=== PATIENT | male | born 1985 | race African-American/Black ===

== ENCOUNTER 2019-02-03 23:55 | Inpatient (IN) | payer BC ==
[~2019-02-03] VITALS: Ht 172.7 cm; Wt 88.2 kg
--- NOTE | ~2019-02-03 | OP ---
PATIENT NAME: LISETH NAJERA MEDICAL RECORD: [id number] :[birth year] LOCATION:D.M2 D.2102 ADMISSION DATE:02/03/19 SURGEON: DEBBIE LOBATO MD DATE OF OPERATION: 02/06/2019 PROCEDURES: 1. Left heart catheterization. 2. Selective coronary angiography. 3. Left ventriculogram PROCEDURE IN DETAIL: After informed consent was obtained and after a detailed description of risks, benefits as well as alternative therapies, the patient elected to proceed with angiogram and heart catheterization. The right femoral area was prepped and draped in normal sterile fashion. Right femoral artery was cannulated via modified Seldinger technique with placement of 5-Swedish sheath. All catheters exchanged through this sheath. FINDINGS: The left ventriculogram was performed in standard 30-degree JETT view. Left ventricle is grossly dilated. Left ventricular systolic function is markedly reduced, overall ejection fraction in the 15% range. SELECTIVE CORONARY ANGIOGRAPHY: Left main, left anterior descending, left circumflex, and right coronary artery are all smooth-walled vessels with no angiographic evidence of coronary artery disease. OVERALL IMPRESSION: 1. No angiographic evidence of coronary artery disease. 2. Normal left heart pressure. 3. Severe LV dysfunction with ejection fraction 15%, nonischemic cardiomyopathy. TRANSINT:[id number] Voice Confirmation ID: [id number] DOCUMENT ID: [id number] DEBBIE LOBATO MD CC: [id number] DICTATION DATE: 02/09/19 1018 CLUSTER BORE OPERATOR: 02/09/19 1050 DIS IN 02/07/19 [facility] [address] [id number]
--- NOTE | ~2019-02-03 | HEMODYNAMI ---
PATIENT:LISETH NAJERA MEDICAL RECORD: [id number] : 81 LOCATION:[facility] D.2102 ADMISSION DATE: 02/03/19 Generatedon:02/06/201914:47 Patient name: LISETH NAJERA Patient #: [id number] SSN: : 1985 Date of study: 02/06/2019 Page: Of Hemodynamic Procedure Report Patient Data Patient Demographics Procedure consent was obtained First Name: LISETH Gender: Male Last Name: DANIA : 1985 Patient #: [id number] Age: 34 year(s) Race: Black Additional ID: [id number] Contact details [address]: [address] [place] [address] State: [place] City: [place] Zip code: [address] Past Medical History Allergies: No known allergies Admission Admission Data Admission Date: 02/03/2019 Admission Time: 23:55 Room #: D.2102 Height (in.): 67.72 BSA: 1.99 (m2) Height (cm.): 172 BMI: 29.07 (kg/m2) Weight (lbs.): 189.6 Weight (kg.): 86 Lab Results Lab Result Date: 02/06/2019 Lab Result Time: 0:00 Biochemistry Name Units Result Min Max BUN mg/dl 30 --(----)-* 7 18 Creatinine mg/dl 1.5 --(----)-* 0.6 1.3 CBC Name Units Result Min Max Hemoglobin g/dl 13.5 --(*---)-- 13.5 17.5 Procedure Procedure Types Cath Procedure Diagnostic Procedure [facility] Procedure Description Procedure Date Procedure Date: 02/06/2019 Procedure Start Time: 14:35 Procedure End Time: 14:46 Procedure Staff Name Function Garfield Wei MD Performing Physician Abram Whitaker RN Nurse Shala Wiseman RT Scrub Pardeep Marin RT Monitor Procedure Data Cath Procedure Fluoroscopy Diagnostic fluoroscopy Total fluoroscopy Time: 0.8 time: 0.8 min min Diagnostic fluoroscopy Total fluoroscopy dose: 426 dose: 426 mGy mGy Contrast Material Contrast Material Type Amount (ml) Isovue 300 41 Entry Location Entry Primary Successful Side Size Upsize Upsize Entry Closure Succes sful Closure Location (Fr) 1 (Fr) 2 (Fr) Remarks Device Remarks Femoral Right 5 Fr Exoseal artery Estimated blood loss: 10 ml Diagnostic catheters Device Type Used For End Catheter Placement MULTIPACK Pigtail 5 Fr Procedure catheter MULTIPACK JL 4.0 5Fr Procedure catheter MULTIPACK 3DRC 5Fr Procedure catheter Procedure Medications Medication Administration Route Dosage 0.9% NaCl I.V. 100 ml/hr Oxygen etCO2 Nasal cannula 2 l/min Heparin Flush Bag added to field 2 bags (1000units/500ml NS) Lidocaine 2% added to field 20 Versed I.V. 2 mg Fentanyl I.V. 100 mcg Hemodynamics Rest BSA: 1.99 (m2) HGB: 13.5 (g/dl) O2 Consumption: Estimated: 260.45 (ml/min) O2 Co nsumption indexed: Estimated:130.88 (ml/min/m) Heart Rate: 90 (bpm) Pressure Samples Time Site Value (mmHg) Purpose Heart Use Rate(bpm) 14:36 LV 85/16,21 Snapshot 101 Snapshots Pre Cath Intra NCS Post Cath Vital Signs Time Heart Resp SPO2 etCO2 NIBP (mmHg) Rhythm Pain Sedation Rate (ipm) (%) (mmHg) Status Level (bpm) 14:16:24 90 27 100 22.5 138/93(104) NSR 0 (11) 10(A) , No pain 14:20:40 89 44 100 24.7 125/81(94) NSR 0 (11) 10(A) , No pain 14:24:50 94 33 100 24.7 114/81(95) NSR 0 (11) 10(A) , No pain 14:28:57 92 27 100 33 112/75(92) NSR 0 (11) 10(A) , No pain 14:33:03 98 27 100 27.7 114/79(91) NSR 0 (11) 10(A) , No pain 14:37:13 96 26 100 32.3 111/75(89) NSR 0 (11) 9(A) , No pain 14:41:19 96 22 100 32.2 122/80(93) NSR 0 (11) 9(A) , No pain 14:45:27 97 37 100 20.2 106/77(88) NSR 0 (11) 9(A) , No pain Medications Time Medication Route Dose Verified Delivered Reason Notes Eff ectiveness by by 14:16:50 0.9% NaCl I.V. 100 Abram Abram Per ml/hr Julianne Whitaker physician RN RN 14:16:59 Oxygen etCO2 2 Abram Abram for low 02 Nasal l/min Lorigan Lorigan sats cannula RN RN 14:17:08 Heparin Flush added 2 Abram Abram used for Bag to bags Lorigan Loryinka procedure (1000units/500ml field RN RN NS) 14:17:18 Lidocaine 2% added 20ml Abram Abram for local to vial Lorigan Lorigan anesthetic field RN RN 14:31:31 Versed I.V. 2 mg Abram Abram for Lorigan Lorigan sedation RN RN 14:31:39 Fentanyl I.V. 100 Abram Abram for mcg Lorigan Lorigan sedation RN personal financial counselor Log Time Note 13:58:48 Patient Height : 67.72 inches 13:58:52 Patient Weight : 189.6 lbs 13:59:31 Lab Result : Hemoglobin 13.5 g/dl 13:59:31 Lab Result : Creatinine 1.5 mg/dl 13:59:31 Lab Result : BUN 30 mg/dl 13:59:37 Diagnostic Cath status Elective 13:59:41 Time tracking: Regular hours (M-F 7:00 - 5:00) 13:59:47 Plan of Care:Hemodynamics will remain stable., Cardiac rhythm will remain stable., Comfort level will be maintained., Respiratory function will remain adequate., Patient/ family verbilizes understanding of procedure., Procedure tolerated without complication., Recovers from procedure without complications.. 13:59:55 Patient received from Pre/Post Procedure Room to CCL 2 Alert and oriented. Tansferred to table in Supine position. 14:00:46 Abram Whitaker RN sent for patient. Start room use. 14:15:11 Warm blankets applied, and ryanne hugger turned on for patient comfort. 14:15:12 Correct patient and procedure confirmed by team. 14:15:13 Signed procedure consent form obtained from patient. 14:15:22 ECG and BP/O2 sat monitors applied to patient. 14:15:23 Vital chart was started 14:15:30 Baseline sample Acquired. 14:15:31 Full Disclosure recording started 14:15:42 H&P Date Dictated: 02/04/2019 Within 30 days and on chart., H&P Addendum completed by physician on day of procedure. (MUST COMPLETE FOR ALL OUTPATIENTS). 14:15:44 Pre-procedure instructions explained to patient. 14:15:50 Family unavailable. 14:15:52 Patient NPO since Midnight. 14:15:58 Patient allergic to No known allergies 14:16:01 Is the patient allergic to Iodine/contrast media? No. 14:16:02 Was the patient premedicated? Yes 14:16:04 Is patient on blood thinner?No 14:16:05 Patient diabetic? No. 14:16:11 Snore? Yes 14:16:13 Sleep apnea? No 14:16:15 Airway obstruction? No ? 14:16:19 Dentures? No ? 14:16:26 Patient pain scale 0/10 ?. 14:16:32 IV patent on arrival in left forearm with 0.9% NaCl at [facility]. 14:16:39 Lab results completed and on chart. 14:16:43 Right groin area was prepped with chlora-prep and draped in sterile fashion 14:16:44 Alarms reviewed by R. N. 14:16:45 Sharps counted by scrub and verified by R.N. 14:16:50 0.9% NaCl 100 ml/hr I.V. was administered by Abram Whitaker RN; Per physician; 14:16:51 Use device set Femoral Dx 14:16:53 ACIST Syringe (01011) opened to sterile field. 14:16:53 Bag Decanter (2002S) opened to sterile field. 14:16:54 Medline Cath Pack ([id number]) opened to sterile field. 14:16:55 DIAGNOSTIC WIRE .035 260cm J wire (966729) opened to sterile field. 14:16:56 ACIST Hand Control (58701) opened to sterile field. 14:16:56 ACIST Manifold (28123) opened to sterile field. 14:16:57 DIAGNOSTIC Multipack 5Fr catheter set (EC5176) opened to sterile field. 14:16:59 Oxygen 2 l/min etCO2 Nasal cannula was administered by Abram Whitaker RN; for low 02 sats; 14:17: SHEATH 5FR [place] (RTI408) opened to sterile field. 14::08 Heparin Flush Bag (1000units/500ml NS) 2 bags added to field was administered by Abram Whitaker RN; used for procedure; 14::18 Lidocaine 2% 20ml vial added to field was administered by Abram Whitaker RN; for local anesthetic; 14:: Baseline sample Acquired. 14::33 Rhythm: sinus rhythm 14:: Previous problem with sedation/anesthesia? No ? 14::00 Deviated septum? No 14::07 Opens mouth fully? Yes 14::09 Sticks out tongue? Yes 14::59 Physician arrived 14::00 --------ALL STOP TIME OUT------ 14::00 Final Timeout: patient, procedure, and site verified with staff and physician. All members of the team are in agreement. 14:30: Right groin site verified by team. 14:30: Maximum allowable Isovue 300 dose 300ml. Physician notified. (300ml for normal creatinines. For patients with creatinine of 1.7 or higher multiply weight(kg) x 5 divided by creatinine.) 14:30:19 Fire Safety Assessment: A--An alcohol-based skin anteseptic being used preoperatively., C--Open oxygen or nitrous oxide is being used., D--An ESU, laser, or fiber-optic light is being used. 14:: Physical assessment completed. ASA score P 2 - A patient with mild systemic disease as per Garfield Wei MD. :: Sedation plan: IV Moderate Sedation Medication:Versed, Fentanyl : Versed 2 mg I.V. was administered by Abram Whitaker RN; for sedation; ::39 Fentanyl 100 mcg I.V. was administered by Abram Whitaker RN; for sedation; :35:07 Procedure started. 14:35:12 Local anesthetic to right femoral artery with Lidocaine 2% by Garfield Wei MD.INITIAL ACCESS ONLY 14:35:37 A 5 Fr sheath was inserted into the Right Femoral artery 14:36:07 A MULTIPACK Pigtail 5 Fr catheter was advanced over the wire and used for Procedure. 14:36:37 LV hemodynamics recorded. 14:36:39 LV gram done using JETT 14:37:00 EF : 15 % 14:37:23 Catheter removed. 14:37:28 A MULTIPACK JL 4.0 5Fr catheter was advanced over the wire and used for Procedure. 14:38:04 LCA angiography performed. 14:38:06 Catheter removed. 14:38:36 A MULTIPACK 3DRC 5Fr catheter was advanced over the wire and used for Procedure. 14:39:03 RCA angiography performed. 14:39:13 Catheter removed. 14:39:21 EXOSEAL 5Fr (EX500) opened to sterile field. 14:39:38 Sheath removed intact; hemostasis achieved with Exoseal to the Right Femoral artery. 14:39:40 Procedure ended.(Physican Out) 14:40:22 Fluoroscopy time 00.80 minutes. 14:40:29 Fluoroscopy dose: 426 mGy 14:40:29 Flurop Dose total: 426 14:40:37 Contrast amount:Isovue 300 41ml. 14:40:41 Sharps counted by scrub and verified by R.N. 14:45:07 Insertion/operative site no bleeding no hematoma. 14:45:12 Post-op/insertion site Right Femoral artery dressed using a 4 x 4 and Tegaderm. 14:45:16 Post right femoral artery:stable 14:45:24 Post-procedure physical assessment completed. ASA score P 2 - A patient with mild systemic disease as per Garfield Wei MD. 14:45:29 Post procedure rhythm: paced 14:45:33 Estimated blood loss: 10 ml 14:45:38 Patient needs reinforcement of post procedure teaching. 14:45:39 Procedure and supply charges have been captured, reviewed, submitted and are correct. 14:46:09 Vital chart was stopped 14:46:10 See physician's report for complete and final results. 14:46:23 Report given to [facility]. 14:46:28 Patient transfered to [facility] with Bed. 14:46:30 Procedure ended. 14:46:30 Full Disclosure recording stopped 14:46:36 End room use (Document Last) Device Usage Item Name Manufacture Quantity Catalog Hospital Part Current Minimal L ot# / Number Charge Number Stock Stock Serial# Code ACIST Acist 1 15566 282454 049055 330566 20 Syringe Medical (72240) Systems Inc Bag Microtek 1 2001S 380862 58853 503003 5 Decanter Medical Inc. () Medline Medline 1 [id number] 304323 25943 149316 5 Cath Pack ([id number]) DIAGNOSTIC St Reid 1 807326 795719 094000 721642 30 WIRE .035 260cm J wire (274447) ACIST Hand Acist 1 80033 695927 102074 187671 5 Control Medical (79930) Systems Inc ACIST Acist 1 79317 042553 197912 267959 5 Manifold Medical (99749) Systems Inc DIAGNOSTIC Cardinal 1 YW1067 121253 44695 544378 30 Multipack Health 5Fr catheter set (QE4821) SHEATH 5FR Terumo 1 KGF982 650277 653184 275720 5 [place] (BLC994) MULTIPACK Cardinal 1 093318 5 Pigtail 5 Health Fr catheter MULTIPACK Cardinal 1 459899 5 JL 4.0 5Fr Health catheter MULTIPACK Cardinal 1 034095 5 3DRC 5Fr Health catheter EXOSEAL 5Fr Cardinal 1 EX500 450934 985779 018286 10 (EX500) Health Signature Audit [place] Stage Time Signature Unsigned Intra-Procedure 02/06/2019 Pardeep Marin 2:47:28 PM RT(R) (CV) Signatures Monitor : Pardeep Marin RT Signature : Date : Time : [address] [address]
--- NOTE | 2019-02-04 02:10 | NUR ---
DIRECT ADMIT DENIES CP OR SOB TO BED AND LUNGS ARE CLEAR RESP AT 22...VS 97.4 135/89 109 22 98% ON 2L/NC SKIN WARM AND DRY NO WOUNDS OR BREAK DOWN.
--- NOTE | 2019-02-04 02:38 | NUR ---
DR HAYS NOTIFIED WITH NO NEW ORDERS GIVEN
--- NOTE | 2019-02-04 02:48 | NUR ---
APPLIED TELEMETRY AT THIS TIME
--- NOTE | 2019-02-04 02:58 | NUR ---
PT ADMIT ASSESSMENT COMPLETE. PT IS AAO. ON 1L O2 NC. LEFT AC PIV 20G S/L LEFT CHEST DEFIB, S1S2 RRR. LUNGS HAVE FINE CRACKLES/RALES. NO EDEMA NOTED. PULSES +2 PT HAS CALL LIGHT IN REACH. NO S/S OF DISTRESS. NUTRITIONAL HEALTH COACH JAMES DOING MED REC AND HISTORY. PT WILL CALL FOR ASSIST WHEN NEEDED. WILL CPOC
[2019-02-04] MEDS ORDERED: COREG6.25 MG PO (03:07)
[2019-02-04] MEDS ORDERED: METOLAZONE2.5 MG PO (03:08)
[2019-02-04] MEDS ORDERED: PROTONIX40 MG PO (03:08)
[2019-02-04 03:57] VITALS: BP 135/89; BMI 29.8
[2019-02-04 05:08] VITALS: BP 135/89
--- NOTE | 2019-02-04 07:10 | NUR ---
REPORT RECEIVED FROM EXECUTIVE CHAIRMAN. PATIENT LAYING IN BED ION RT SIDE WITH EYES CLOSED AND BREATHING EVENLY. VSS. WILL CONTINUE WITH PLAN OF CARE. SR UP X 2 BED IN LOW POSITION AND CALL LIGHT IN REACH.
[2019-02-04 09:30] LABS: BASOPHILS 0.2 % (0-2); EOSINOPHILS 2.8 % (0-7); HEMATOCRIT 40.7 % (42.0-54.0); HEMOGLOBIN 13.5 g/dL (13.5-17.5); IMMATURE GRANULOCYTES 0.2 % (0-5); LYMPHOCYTES 27.5 % (15-50); MCH 31.5 pg (26.0-34.0); MCHC 33.2 g/dL (31.0-37.0); MCV 94.9 fL (80.0-100.0); MEAN PLATELET VOLUME 9.2 fL (7.4-10.4); MONOCYTES 5.4 % (2-11); NEUTROPHILS 63.9 % (40-80); PLATELET COUNT 228 10x3/uL (130-400); RBC 4.29 10x6/uL (4.20-6.10); WBC 5.4 10x3/uL (4.8-10.8)
[2019-02-04 09:45] VITALS: BP 125/95
[2019-02-04 09:53] LABS: ANION GAP 13.5 mmol/L (8-16); CALCIUM 8.9 mg/dL (8.5-10.1); CARBON DIOXIDE 29.5 mmol/L (21.0-32.0); CREATININE - SERUM 1.5 mg/dL (0.6-1.3)
[2019-02-04 12:16] VITALS: BMI 29.8
[2019-02-04 14:40] VITALS: Ht 172.7 cm; Wt 88.2 kg
--- NOTE | 2019-02-04 14:49 | NUR ---
PATIENT REFUSING TO WEAR SCD'S.
--- NOTE | 2019-02-04 15:30 | NUR ---
PATIENT VOIDED 125 ML OF CONCENTRATED URINE. POST VOID BLADDER SCAN SHOWED 43 ML. PER MAR ORDER INFUSING DOBUTAMINE 5 MCG/KG/MIN AND BUMEX. PATIENT DENIES THAO NEEDS OR PAIN. VSS. WILL CONTINUE TO MONITOR.
[2019-02-04 16:58] LABS: CKMB 1.4 U/L (0.0-3.6); CREATINE KINASE 251 UL (21-232); PRO BNP 3105 pg/mL (0-125); TROPONIN-I 0.083 ng/mL (0.000-0.060)
[2019-02-04 18:23] LABS: UDS - AMPHET NEGATIVE QUAL (NEGATIVE); UDS - BARB NEGATIVE QUAL (NEGATIVE); UDS - BENZO NEGATIVE QUAL (NEGATIVE); UDS - COCAINE NEGATIVE QUAL (NEGATIVE); UDS - OPIATE NEGATIVE QUAL (NEGATIVE); UDS - PCP NEGATIVE QUAL (NEGATIVE); UDS - THC NEGATIVE QUAL (NEGATIVE)
[2019-02-04 18:31] VITALS: BP 129/44
[2019-02-04 18:33] LABS: APPEARANCE CLEAR (CLEAR); BILIRUBIN NEGATIVE (NEGATIVE); COLOR YELLOW (YELLOW); GLUCOSE NEGATIVE (NEGATIVE); KETONE NEGATIVE (NEGATIVE); NITRITE NEGATIVE (NEGATIVE); PROTEIN 1+ mg/dL (NEGATIVE); SPECIFIC GRAVITY 1.025 (1.005-1.020)
--- NOTE | 2019-02-04 20:00 | NUR ---
RESUMING PT CARE. PT ALERT LAYING IN BED WATCHING TV. NO C/O VOICED. RESPIRATIONS EVEN AND UNLABORED. NO S/S OF DISTRESS NOTED. PT HAS A IV IN THE LEFT AC. PT IS ON 2 LITERS OF OXYGEN. BED IN LOW POSITION WITH CALL LIGHT IN REACH. WILL CONTINUE TO MONITOR PT AND FOLLOW PLAN OF CARE.
[2019-02-04 22:19] LABS: CKMB 1.7 U/L (0.0-3.6); CREATINE KINASE 413 UL (21-232); TROPONIN-I 0.094 ng/mL (0.000-0.060)
[2019-02-04 22:36] VITALS: BP 123/80
[2019-02-05 03:33] LABS: CREATINE KINASE 308 UL (21-232); POTASSIUM - SERUM 3.1 mmol/L (3.5-5.1)
[2019-02-05 03:34] LABS: TROPONIN-I 0.089 ng/mL (0.000-0.060)
--- NOTE | 2019-02-05 04:23 | NUR ---
I have reviewed this patient and I concur with the Shift Assessment completed by the Licensed Practical Nurse today this shift.
--- NOTE | 2019-02-05 04:38 | NUR ---
2335 PT C/O OF SEVERE CRAMPING. PT LABS SHOWED POTASSIUM WAS 3.0 SO PT WAS GIVEN POTASSIUM CHLORIDE 40 MEQ PO PER PROTOCOL. LABS WAS DRAWN 4 HOURS AFTER AND LAB RESULTS WAS 3.1 SO POTASSIUM CHLORIDE 40 MEQ PO WAS GIVEN PER PROTOCOL. WILL CONTINUE TO MONITOR PT AND FOLLOW PLAN OF CARE.
[2019-02-05 06:06] VITALS: BP 112/77
--- NOTE | 2019-02-05 07:10 | NUR ---
REPORT RECIEVED FROM DRAINMAN. PATIENT LAYING IN BED ON LEFT SIDE WITH EYES CLOSED AND BREATHING EVENLY.VSS. WILL CONTINUE WITH PLAN OF CARE. SR UP X 2 BED IN LOW POSITION AND CALL LIGHT IN REACH.
[2019-02-05 09:06] VITALS: BP 99/69
--- NOTE | 2019-02-05 11:59 | NUR ---
Nutrition follow-up: Diet: Regular PO intake 100% of meals Labs reviewed Wt: 190# No BM charted RDN following.
[2019-02-05 13:02] VITALS: BP 111/74
--- NOTE | 2019-02-05 14:29 | NUR ---
PATIENT LAYING IN BED ON BACK WATCHINHG TV. VSS. PATIENT DENIES ANY PAIN OR NEEDS. WILL CONTINUE TO MONITOR. SR UP X 2 BED IN LOW POSITION AND CALL LIGHT IN REACH.
--- NOTE | 2019-02-05 17:05 | NUR ---
PTS L.AC PIV KEEP BECOMING OCCLUDED DUE TO LOCATION AND PT BENDING HIS ARM. D/C WITH CATHETER TIP FULLY INTACT AND RESITED PT TO HIS L.FA X1 STICK WITH A 20 GUAGE. DOBUTAMINE DRIP STILL INFUSING. DISCUSSED WITH PRIMARY NURSE INDY. NO FURTHER NEEDS.
[2019-02-05 18:32] VITALS: BP 112/81
--- NOTE | 2019-02-05 19:45 | NUR ---
RESUMING PT CARE. PT IS ALERT LAYING IN BED. NO C/O VOICED. RESPIRATIONS EVEN AND UNLABORED. NO S/S OF DISTRESS. BED IN LOW POSITION WITH CALL IN REACH. WILL CONITINUE TO MONITOR PT AND FOLLOW PLAN OF CARE.
[2019-02-05 20:00] VITALS: BP 117/83
[2019-02-06] VITALS: BP 124/85
--- NOTE | 2019-02-06 03:11 | NUR ---
I have reviewed this patient and I concur with the Shift Assessment completed by the Licensed Practical Nurse today this shift.
--- NOTE | 2019-02-06 03:25 | NUR ---
I have reviewed this patient and I concur with the Shift Assessment completed by the Licensed Practical Nurse today this shift.
[2019-02-06 04:00] VITALS: BP 103/70
[2019-02-06 05:04] LABS: ANION GAP 13.4 mmol/L (8-16); CALCIUM 8.6 mg/dL (8.5-10.1); CARBON DIOXIDE 28.7 mmol/L (21.0-32.0); CREATININE - SERUM 1.4 mg/dL (0.6-1.3); POTASSIUM - SERUM 3.1 mmol/L (3.5-5.1)
--- NOTE | 2019-02-06 07:10 | NUR ---
REPORT RECEIVED FROM MATCHER LEATHER PARTS AND PATIENT CARE RESUMED. PATIENT LAYING IN BED ON RT SIDE WITH EYES CLOSED AND BREATHING EVENLY. VSS. WILL CONTINUE WITH PLAN OF CARE. SR UP X 2 BED IN LOW POSITION AND CALL LIGHT IN REACH.
--- NOTE | 2019-02-06 08:30 | NUR ---
ORDER RECIEVED TO DC DOBUTAMINE DRIP. DRIP DC'D.
[2019-02-06 10:15] VITALS: BP 126/88
--- NOTE | 2019-02-06 13:50 | NUR ---
PATIENT IS STABLE AND VSS. PATIENT PREOP MEDS GIVEN PER JAN ORDER AND CALL FROM NURSING MANAGER TEAM. WILL CONTINUE TO MONITOR. SR UP X 2 BED IN LOW POSITION AND CALL LIGHT IN REACH.
--- NOTE | 2019-02-06 14:00 | NUR ---
PATIENT IS STABLE AND VSS. PATIENT TO AUTOMATIC CLIPPER AND STRIPPER VIA BED AND AUTOMATIC CLIPPER AND STRIPPER TEAM.
--- NOTE | 2019-02-06 14:47 | NUR ---
PATIENT RETURNED FROM BUILDING ARCHITECT VIA BED AND BUILDING ARCHITECT TEAM. PATIENT IS STABLE AND VSS. RT GROIN DRESSING C/D/I. PATIENT IS RESTING COMFORTABLY KWITH EYES CLOSED AND BREATHING EVENLY. WILL CONTINUE TO MONITOR. SR UP X 2 BED IN LOW POSTION AND CALL LIGHT IN REACH.
--- NOTE | 2019-02-06 15:00 | NUR ---
PATIENT RESTING COMFORTABLY WITH EYES CLOSED AND BREATHING EVENLY. VSS. RT GROIN DRESSING C/D/I. NO SIGNS OR BLEEDING, HEMATOMA, OR BRUISING. WILL CONTINUE TO MONITOR.
--- NOTE | 2019-02-06 15:03 | EC ---
PATIENT:LISETH NAJERA DATE OF SERVICE: 02/03/19 SEX: M MEDICAL RECORD: [id number] DATE OF : [birth year] LOCATION:D.M2 D.210 AGE OF PATIENT: 34 ADMISSION DATE: 02/03/19 REFERRING PHYSICIAN: INTERPRETING PHYSICIAN: DEBBIE WEI MD ECHOCARDIOGRAM REPORT ECHO CHARGES 4 ECHO COMPLETE Date: 02/04/19 CLINICAL DIAGNOSIS: CHF/CARDIOMYOPATHY HX OF ICD/CHF ECHOCARDIOGRAPHIC MEASUREMENTS (adult normal given) AC root (d.<3.7cm) 3.6 cm LV Septum d (<1.2 cm> 1.4 cm Valve Excursion 2.3 cm LV Septum (systole) 1.4 cm Left Atria (s.<4.0cm> 6.1 cm LVPW d(<1.2cm) 1.9 cm RV (d.<2.3cm) 6.4 cm LVPW (sytole) 1.9 cm LV diastole(<5.6CM) 7.2 cm MV E-F(>70mm/sec) cm LV systole 6.0 cm LVOT Diameter 2.2 cm MV exc.(>10mm) 1.8 cm Est.ejection fraction (50-75%) % DOPPLER: LVIT cm/sec A 48.0 cm/sec E 122 cm/sec LA cm/sec RVSP 40 mmHg LVOT 65 cm/sec AOP1/2T m/s Asc. Ao 77 cm/sec RVOT 50 cm/sec RA cm/sec PA 72 cm/sec AV Gradient Peak 2.36 mmHg AV Mean 1.24 mmHg AV Area 2.8 cm MV Gradient Peak 13.70mmHg MV Mean 4.32 mmHg MV Area cm COMMENTS: Line Runner: Taye GARCIA Mechanical Integrity Specialist: 1 Dr. Wei TAPE# PACS Pericardial Effusion N DATE OF SERVICE: 02/04/2019 FINDINGS: 1. Left ventricular chamber size is dilated. Left ventricular systolic function is markedly reduced. Overall ejection fraction is 25% to 30%. 2. Left atrium, right atrium, and right ventricle chamber sizes are dilated, giving a 4-chamber dilatation. 3. Valvular structures have normal structure and motion. 4. Doppler interrogation reveals mild aortic insufficiency, severe mitral regurgitation, and [id number]-uvptbt tricuspid regurgitation. No other ECHOCARDIOGRAM REPORT [id number] NAJERA,LISETH valvular insufficiency or stenosis. Pulmonary systolic pressure is estimated at 40 mmHg. 5. No evidence of pericardial effusion or left ventricular thrombus. TRANSINT:[id number] Voice Confirmation ID: [id number] DOCUMENT ID: [id number] DEBBIE WEI MD at 1503 CC: [id number] DICTATION DATE: 02/04/19 1553 CARTON CATCHER: 02/04/19 2305 ADM IN [id number] [place] [address]
--- NOTE | 2019-02-06 17:03 | NUR ---
PATIENT AWAKE AND CONTINUES TO LAY FLAT WITH LEGS STRAIGHT. RT GROIN DRESSING C/D/I. NO SIGNS OF BLEEDING, BRUISING OR HEMATOMA. PATIENT GIVEN WATER AND JUICE TO DRINK. PATIENT DENIES ANY NEEDS OR PAIN. WILL CONTINUE TO MONITOR. SR UP X 2 BED IN LOW POSITION AND CALL LIGHT IN REACH.
[2019-02-06 17:36] VITALS: BP 116/84
--- NOTE | 2019-02-06 19:00 | NUR ---
AT REST WITH EYES CLOSED RESP EVEN AND UNLABERED LUNGS WIUTH WHEEZES SKIN WARM AND DRY RT GROIN WITH NO BLLEED THROUGH ON DRSG BED IS LOW AND CALL LIGHT IS IN REACH
[2019-02-06 20:00] VITALS: BP 116/83
[2019-02-07] VITALS: BP 110/71
--- NOTE | 2019-02-07 02:44 | NUR ---
I have reviewed this patient and I concur with the Shift Assessment completed by the Licensed Practical Nurse today this shift.
[2019-02-07 04:00] VITALS: BP 116/79
[2019-02-07 05:33] LABS: BASOPHILS 0.2 % (0-2); EOSINOPHILS 4.2 % (0-7); HEMATOCRIT 38.9 % (42.0-54.0); HEMOGLOBIN 12.9 g/dL (13.5-17.5); LYMPHOCYTES 29.3 % (15-50); MCH 31.4 pg (26.0-34.0); MCHC 33.2 g/dL (31.0-37.0); MCV 94.6 fL (80.0-100.0); MEAN PLATELET VOLUME 9.3 fL (7.4-10.4); MONOCYTES 7.7 % (2-11); NEUTROPHILS 58.6 % (40-80); RBC 4.11 10x6/uL (4.20-6.10); RDW 17.3 % (11.5-14.5); WBC 4.3 10x3/uL (4.8-10.8)
[2019-02-07 05:43] LABS: PLATELET COUNT 182 10x3/uL (130-400)
[2019-02-07 05:47] LABS: CALCIUM 8.4 mg/dL (8.5-10.1); CREATININE - SERUM 1.5 mg/dL (0.6-1.3)
--- NOTE | 2019-02-07 07:45 | NUR ---
RESUMING PT CARE, PT IS LAYING IN BED ALERT AND ORIENTED, RESPIRAITONS EVEN AND UNLABORED. CALL LIGHT IN REACH , WILL CONTINUE TO MONITOR AND FOLLOW PLAN OF CARE.
[2019-02-07 08:50] VITALS: BP 99/70
--- NOTE | 2019-02-07 09:59 | NUR ---
I have reviewed this patient and I concur with the Shift Assessment completed by the Licensed Practical Nurse today this shift.
[2019-02-07 13:19] VITALS: BP 107/82
[2019-02-07 14:47] VITALS: BP 107/82
--- NOTE | 2019-02-07 15:37 | NUR ---
PT SLEEPING, RESPIRATIONS EVEN AND UNLABORED, CALL LIGHT IN REACH. WILL CONTINUE TO MONITOR.
--- NOTE | 2019-02-07 15:47 | NUR ---
D/C INSTRUCTIONS GIVEN TO PT WITH VERBAL UNDERSTANDING, WILL REMOVE IV AND TAKE TO VEHICLE WHEN FAMILY ARRIVES.
--- NOTE | 2019-02-07 20:23 | NUR ---
IV-TAKEN OUT OF LAC, TELEMTRY REMOVED, PT DISCHARGED, REFUSED TO BE TAKEN DOWN VIA WHEELCHAIR
--- NOTE | 2019-02-09 08:52 | MORECARE ---
CASE MANAGEMENT DISCHARGE SUMMARY PATIENT: LISETH NAJERA UNIT: [id number] ADM DATE: 02/03/19 AGE: 34 : [birth year] SEX: M ROOM/BED: D.2102 AUTHOR: ARACELIS COPELAND PHYSICIAN: REFERRING PHYSICIAN: NAVID CABRERA MD DATE OF SERVICE: 02/09/19 Discharge Plan Patient Name: LISETH NAJERA Facility: [facility]:[place] : 1985 Planned Disposition: Home Anticipated Discharge Date: 02/07/19 Discharge Date: 02/07/2019 Expected LOS: 4 Initial Reviewer: [email or web address] Initial Review Date: 02/09/2019 Generated: 02/09/19 9:52 am Patient Name: LISETH NAJERA Page [id number] at 0852 All edits/amendments must be made on the electronic document DICTATION DATE: 02/09/19 0851 GROUNDS MAINTENANCE WORKER: DM 02/09/19 0851 RPT#: [id number] DC DATE:02/07/19 STATUS: DIS IN [facility] [address] [place] [address] END OF REPORT
== END 2019-02-07 20:26 | disposition home or self-care (01) | DRG 286 ==
LOC: D.M2 23:55
PROVIDERS: Internal Medicine Interventional Cardiology; ADMIT Internal Medicine Nephrology; ATTEND Internal Medicine Nephrology
PROC: B2151ZZ Fluoroscopy of Left Heart using Low Osmolar Contrast (ICD-10-PCS; 2019-02-06)
PROC: 4A023N7 Measurement of Cardiac Sampling and Pressure, Left Heart, Percutaneous Approach (ICD-10-PCS; 2019-02-06)
PROC: B2111ZZ Fluoroscopy of Multiple Coronary Arteries using Low Osmolar Contrast (ICD-10-PCS; principal; 2019-02-06 13:59)
DX: I08.3 Combined rheumatic disorders of mitral, aortic and tricuspid valves (principal); I50.23 Acute on chronic systolic (congestive) heart failure; N17.9 Acute kidney failure, unspecified; F17.213 Nicotine dependence, cigarettes, with withdrawal; I42.9 Cardiomyopathy, unspecified; I11.0 Hypertensive heart disease with heart failure; E87.6 Hypokalemia; F10.10 Alcohol abuse, uncomplicated